=== PATIENT | male | born 1990 | race African-American/Black ===

== ENCOUNTER 2021-08-30 04:06 | Emergency (ER) | payer OTHER ==
[~2021-08-30] VITALS: Ht 182.9 cm; Wt 104.3 kg
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
[2021-08-30] MEDS ORDERED: NOHOMEMEDICATIONS (04:11)
[2021-08-30] MEDS ORDERED: OCUFLOX5 ML OPHTHALMIC (05:27)
[2021-08-30] MEDS ORDERED: NAPROSYN500 MG PO (06:23)
[2021-08-30 06:28] VITALS: BP 129/72
== END 2021-08-30 06:35 | disposition home or self-care (01) ==
LOC: ER 04:06
DX: S05.02XA Injury of conjunctiva and corneal abrasion without foreign body, left eye, initial encounter (principal); S09.90XA Unspecified injury of head, initial encounter; V47.0XXA Car driver injured in collision with fixed or stationary object in nontraffic accident, initial encounter; Y93.89 Activity, other specified; Y92.89 Other specified places as the place of occurrence of the external cause; Y99.8 Other external cause status